=== PATIENT | male | born 1980 | race Caucasian/White ===

== ENCOUNTER 2016-09-21 05:29 | Emergency (ER) | payer BC, OTHER ==
--- NOTE | 2016-09-21 09:07 | ER Document Report ---
ED General - General Time seen by provider: 09:02 Mode of Arrival: Ambulatory Information source: Patient TRAVEL OUTSIDE OF THE [place] IN LAST 30 DAYS: No - HPI Onset: Other - see HPI note - General Chief Complaint: Skin Problem Stated Complaint: ABSCESS/NECK PAIN Notes: Patient is a 36-year-old male presenting to the emergency department for some mild swelling and pain in his neck. Patient states that he has some swelling in the left lymph nodes in his neck and his jaw is tender from his ear down. Patient also has some pain when he is swallowing or chewing food. Patient states that he had an episode similar to this about 8 months ago. Patient received a medication which relieved his symptoms; patient does not know the name of the medication or the dosage. Patient also does not recall the name of his doctor. Patient also complains of an area on his chest just below his breast on the left side that he wants to be examined. Patient states both of these areas occurred this morning. Patient denies any pertinent medical history and any surgeries. (MELE LYNCH) - Related Data Allergies/Adverse Reactions: No Known Allergies Allergy (Verified 01/14/15 14:01) Past Medical History - General Information source: Patient - Social History Smoking Status: Never Smoker Cigarette use (# per day): No Chew tobacco use (# tins/day): No Frequency of alcohol use: Rare Drug Abuse: None Family History: None Patient has suicidal ideation: No Patient has homicidal ideation: No - Medical History Medical History: Negative Surgical Hx: Negative - Immunizations Hx Diphtheria, Pertussis, Tetanus Vaccination: Yes Hx Pneumococcal Vaccination: 04/23/11 Review of Systems - Review of Systems Constitutional: No symptoms reported EENT: No symptoms reported Cardiovascular: No symptoms reported Respiratory: No symptoms reported Gastrointestinal: No symptoms reported Genitourinary: No symptoms reported Male Genitourinary: No symptoms reported Musculoskeletal: No symptoms reported Skin: See HPI Hematologic/Lymphatic: No symptoms reported Neurological/Psychological: No symptoms reported -: Yes All other systems reviewed and negative Physical Exam - Vital signs Interpretation: Normal - General General appearance: Appears well, Alert In distress: Mild - HEENT Head: Normocephalic, Atraumatic Eyes: Normal Pupils: PERRL Ears: Normal External canal: Normal Tympanic membrane: Normal Mouth/Lips: Normal Mucous membranes: Moist Pharynx: Normal, Other - molars are non-tender when tapped, no sign of abscess or dental fractures Neck: Other - Swelling and tenderness to the left submandibular gland, no swelling or tenderness to the parotid gland - Respiratory Respiratory status: No respiratory distress Chest status: Nontender, Other - on the left anterior chest there is a 2 mm subcutaneous nodule Breath sounds: Normal Chest palpation: Normal - Cardiovascular Rhythm: Regular Heart sounds: Normal auscultation Murmur: No - Abdominal Inspection: Normal Distension: No distension Bowel sounds: Normal Tenderness: Nontender Organomegaly: No organomegaly - Back Back: Normal, Nontender - Extremities General upper extremity: Normal inspection, Normal ROM, Normal strength General lower extremity: Normal inspection, Normal ROM, Normal strength - Neurological Neuro grossly intact: Yes Cognition: Normal Orientation: AAOx4 [place] Coma Scale Eye Opening: Spontaneous Myron Coma Scale Verbal: Oriented Myron Coma Scale Motor: Obeys Commands Myron Coma Scale Total: 15 Speech: Normal - Psychological Associated symptoms: Normal affect, Normal mood - Skin Skin Temperature: Warm Skin Moisture: Dry - Vital signs Vitals: Temp Pulse Resp BP Pulse Ox 97.8 F 83 16 140/82 H 97 09/21/16 05:37 09/21/16 05:37 09/21/16 05:37 09/21/16 05:37 09/21/16 05:37 Discharge - Discharge Clinical Impression: Submandibular gland inflammation, Subcutaneous nodule of chest wall Condition: Stable Disposition: HOME, SELF-CARE Additional Instructions: Lymphadenopathy: You have enlargement of lymph glands, called lymphadenopathy. Lymph glands filter tissue fluids. They help to fight infection. Most of the time, enlarged lymph glands are not serious. Lymph glands may react to a viral or bacterial infection by becoming swollen and painful. When the infection goes away, the glands shrink. Sometimes a lymph gland will remain enlarged for a long time after an infection. Occasionally, a lymph gland may be overwhelmed by infection and form an abscess. If an enlarged lymph gland has signs that are suspicious for tumor, the doctor will recommend a biopsy. A suspicious gland usually is NOT painful, grows very slowly, and is rock-hard to touch. See the doctor or return if there is increasing swelling and redness, high fever, difficulty breathing, or any other change for the worse. TAKE THE ANTIBIOTIC PRESCRIBED. USE WARM SOAKS TO THE ENLARGED LYMPH NODE. FOLLOW UP WITH [facility] TO EVALUATE THE LEFT CHEST NODULE. FOLLOW UP WITH A LOCAL MEDICAL DOCTOR IF THE LYMPH NODE DOES NOT IMPROVE. RETURN TO THE EMERGENCY ROOM IF ANY NEW OR WORSENING SYMPTOMS. Prescriptions: Doxycycline Hyclate 100 mg PO BID #20 tablet.dr Forms: Return to Work Referrals: [facility] [Provider Group] - Follow up as needed Scribe Attestation: 09/21/16 09:12 I personally performed the services described in the documentation, reviewed and edited the documentation which was dictated to the scribe in my presence, and it accurately records my words and actions. (GALINDO FIERRO) Scribe Documentation - Scribe Written by Scribe:: Mele Lynch 09/21/16 10:10 acting as scribe for :: Mariann
[2016-09-21 09:48] VITALS: BP 138/78
== END 2016-09-21 09:34 | disposition home or self-care (01) ==
LOC: ER 05:29
DX: I88.8 Other nonspecific lymphadenitis (principal); R22.2 Localized swelling, mass and lump, trunk
CPT/HCPCS: 99283

== ENCOUNTER 2016-10-21 02:22 | Emergency (ER) | payer BC, OTHER ==
--- NOTE | 2016-10-21 07:18 | ER Document Report ---
HPI - HPI Patient complains to provider of: hives Onset: Last week Onset/Duration: Waxing and waning Quality of pain: No pain Pain Level: Denies Context: 36 yo male with itchy hives that wax and wane. Thinks it is the dryer sheets from his mom's house. NO fever. No new meds. Associated Symptoms: None Exacerbated by: Other - ? dryer sheets Relieved by: Denies Similar symptoms previously: No Recently seen / treated by doctor: No - ROS ROS below otherwise negative: Yes Systems Reviewed and Negative: Yes All other systems reviewed and negative - REPRODUCTIVE Reproductive: DENIES: : - DERM Skin Color: Normal Past Medical History - General Information source: Patient - Social History Smoking Status: Never Smoker Chew tobacco use (# tins/day): No Frequency of alcohol use: Occasional Drug Abuse: None Family History: None Patient has suicidal ideation: No Patient has homicidal ideation: No - Medical History Medical History: Negative Renal/ Medical History: Denies: Hx Peritoneal Dialysis Surgical Hx: Negative - Immunizations Hx Diphtheria, Pertussis, Tetanus Vaccination: Yes Hx Pneumococcal Vaccination: 04/23/11 Vertical Provider Document - CONSTITUTIONAL Agree With Documented VS: Yes Exam Limitations: No Limitations General Appearance: No Apparent Distress - INFECTION CONTROL TRAVEL OUTSIDE OF THE [place] IN LAST 30 DAYS: No - NECK Neck: Supple - RESPIRATORY Respiratory: Breath Sounds Normal, No Respiratory Distress O2 Sat by Pulse Oximetry: 99 - CARDIOVASCULAR Cardiovascular: Regular Rate, Regular Rhythm - MUSCULOSKELETAL/EXTREMETIES Musculoskeletal/Extremeties: MAEW, FROM - NEURO Level of Consciousness: Awake, Alert - DERM Integumentary: Rash - scattered trucal and arm urticaria Course - Vital Signs Vital signs: Temp Pulse Resp BP Pulse Ox 97.9 F 61 16 125/81 99 10/21/16 04:19 10/21/16 04:19 10/21/16 04:19 10/21/16 04:19 10/21/16 04:19 Discharge - Discharge Clinical Impression: urticaria Condition: Good Disposition: HOME, SELF-CARE Instructions: Use of Diphenhydramine, Acid-Suppressing Medication ([facility]), Steroid Medication, Acute Urticaria ([facility]) Additional Instructions: continue the benadryl [id number] Pepcid daily Stop using the dryer sheets causing the rash Return to the emergency room if worse Please complete the patient satisfaction survey if you get one, and return it.. If you do not receive a survey, then you can go to the [facility] website, [email or web address] and place your comments about your very good care. Thank you very much. It was a pleasure being your medical provider today. Prescriptions: Prednisone [Deltasone 10 mg Tablet] 10 mg PO ASDIR PRN #21 tablet PRN Reason: Forms: Return to Work Referrals: ASHLIE ALMONTE, DO [ACTIVE STAFF] - Follow up as needed
[2016-10-21 07:42] VITALS: BP 134/90
== END 2016-10-21 07:42 | disposition home or self-care (01) ==
LOC: ER 02:22
DX: L50.9 Urticaria, unspecified (principal)
CPT/HCPCS: 99282

== ENCOUNTER 2016-10-28 21:21 | Emergency (ER) | payer OTHER ==
--- NOTE | 2016-10-28 23:45 | ER Document Report ---
ED General - General Chief Complaint: Allergic Reaction Stated Complaint: POSSIBLE ALLERGIC REACTION/CHEST PAIN Notes: Patient is a 6 show male presents with complaint of hives like reaction. Patient says that he was diagnosed with hives. Then gone away. He took prednisone as prescribed for him. Taking prednisone he broke out worsening hives. He lost medication for several days and came back home today. He found medication. He took it again because the bottle said to finish up the prescription. After taking medication he really broke out in hives again. No difficulty breathing. No difficulty swallowing. No fevers. He also mentions that he had some lymph node swelling several months ago. He says when he got the hives like he might swelled up little bit more. Currently does not feels much swelling. He said no redness or swelling over the areas. He said no infections or fevers associated with it. Patient's third complaint is that he feels all not below his left breast. Says it has been there for a while. It has not enlarged in size. It's not been red or inflamed. Is not painful. TRAVEL OUTSIDE OF THE [place] IN LAST 30 DAYS: No - Related Data Allergies/Adverse Reactions: No Known Allergies Allergy (Verified 01/14/15 14:01) Past Medical History - Social History Smoking Status: Unknown if Ever Smoked Frequency of alcohol use: None Drug Abuse: None Family History: None Patient has suicidal ideation: No Patient has homicidal ideation: No Renal/ Medical History: Denies: Hx Peritoneal Dialysis - Immunizations Hx Diphtheria, Pertussis, Tetanus Vaccination: Yes Hx Pneumococcal Vaccination: 04/23/11 Review of Systems - Review of Systems Notes: My Normal Review Basic REVIEW OF SYSTEMS: CONSTITUTIONAL : Denies fever, chills, or sweats. Denies recent illness. EENT: Denies eye, ear, throat, or mouth pain or symptoms. Denies nasal or sinus congestion. CARDIOVASCULAR: Denies chest pain. RESPIRATORY: Denies cough, cold, or chest congestion. Denies shortness of breath, difficulty breathing, or wheezing. GASTROINTESTINAL: Denies abdominal pain. Denies nausea, vomiting, or diarrhea. Denies constipation. Last BM: MUSCULOSKELETAL: Denies neck or back pain or joint pain or swelling. SKIN: Hives NEUROLOGICAL: Denies altered mental status or loss of consciousness. Denies headache. Denies weakness or paralysis or loss of use of either side. Denies problems with gait or speech. Denies sensory or motor loss. ALL OTHER SYSTEMS REVIEWED AND NEGATIVE. Physical Exam - Vital signs Vitals: Temp Pulse Resp BP Pulse Ox 98.4 F 76 18 133/84 H 100 10/28/16 21:27 10/28/16 21:27 10/28/16 21:27 10/28/16 21:27 10/28/16 21:27 - Notes Notes: General Appearance: Well nourished, alert, cooperative, no acute distress, no obvious discomfort. Well-appearing. Vitals: reviewed, See vital signs table. Head: no swelling or tenderness to the head Eyes: PERRL, EOMI, Conjuctiva clear Mouth: No decreasd moisture Throat: No tonsillar inflammation, No airway obstruction, No lymphadenopathy Neck: Supple, no neck tenderness, No thyromegaly Lungs: No wheezing, No rales, No rhonci, No accessory muscle use, good air exchange bilaterally. Heart: Normal rate, Regular rythm, No murmur, no rub Chest wall: Small pinpoint are not palpated in the subcutaneous fat below the left pectoral muscle. Consistent with probable lipoma. Extremities: strength 5/5 in all extremities, good pulses in all extremities, no swelling or tenderness in the extremities, no edema. Skin: Diffuse easily blanchable hives. Neuro: speech clear, oriented x 3, normal affect, responds appropriately to questions. Course - Re-evaluation Re-evalutation: 10/29/16 01:11 I did give the patient saw Decadron. He does not seem to have any worsening allergic reaction to this since we do not improved with it. I encourage and stopped taking prednisone as this seems to trigger hives for him. It must be a filler or a gritty in the prednisone that he is allergic to. Patient has no airway symptoms. He looks well. I encouraged him to return to the ER if he has worsening of his symptoms or feels unwell. Patient agrees with plan and will be discharged home. Dictation of this chart was performed using voice recognition software; therefore, there may be some unintended grammatical errors. - Vital Signs Vital signs: Temp Pulse Resp BP Pulse Ox 98.4 F 76 18 133/84 H 100 10/28/16 21:27 10/28/16 21:27 10/28/16 21:27 10/28/16 21:27 10/28/16 21:27 Discharge - Discharge Clinical Impression: Allergic reaction Qualifiers: Encounter type: initial encounter Qualified Code(s): T78.40XA - Allergy, unspecified, initial encounter Condition: Good Disposition: HOME, SELF-CARE Additional Instructions: Please return to the ER immediately if you develop worsening hives, fevers, difficulty breathing, or feel unwell. Please stop taking the prednisone. I have prescribed a Adrenaclick pen which is the same thing as an epipen. Only use this if you have severe reaction such as throat swelling, difficulty breathing, or difficulty swallowing. Return to the ER immediately if you have to use the Adrenaclick pen. Please keep a close eye on the small knot below your left breast. PLease follow up with a doctor to monitor it. If it enlarges in size you may need a biopsy. Prescriptions: Epinephrine [Adrenaclick] 0.3 mg IM ONCE PRN #1 kit PRN Reason: severe allergic reaction Forms: Return to Work
[2016-10-28] MEDS ORDERED: DEXAMETHASONE SOD PHOS INJ 10 MG/1 ML VIAL IM ONE (23:52)
[2016-10-28] MEDS ORDERED: FAMOTIDINE 20 MG TABLET PO ONE (23:52)
[2016-10-29 01:21] VITALS: BP 135/89
== END 2016-10-29 01:19 | disposition home or self-care (01) ==
LOC: ER 21:21
DX: T78.40XA Allergy, unspecified, initial encounter (principal); X58.XXXA Exposure to other specified factors, initial encounter
CPT/HCPCS: 99283; 96372; J1100

== ENCOUNTER 2017-05-13 09:19 | Emergency (ER) | payer BC ==
--- NOTE | 2017-05-13 09:33 | ER Document Report ---
HPI - HPI Patient complains to provider of: Lateral left knee pain Onset: This morning Onset/Duration: Sudden Pain Level: 3 Context: 36-year-old male woke up this morning with lateral left knee pain that extends to the proximal fibula area especially when he steps down on that leg. The pain is burning and sharp feels like a cramp and radiates upward to his left sacral iliac back. No history of sciatica. It worse a lot more during the x- ray and came back from radiology very sweaty pale moaning holding his breath and holding his soft tissue adjacent to the left proximal fibula. No history of radiculopathy. No injury. NO fever, No IV drug use, No IV drug use. Associated Symptoms: None Exacerbated by: Walking Relieved by: Other - Rubbing and applying pressure to the area in his left sacroiliac joint and the tendon adjacent to the proximal fibula decrease the pain. I also applied heat which helped the pain. Recently seen / treated by doctor: No - ROS ROS below otherwise negative: Yes Systems Reviewed and Negative: Yes All other systems reviewed and negative - REPRODUCTIVE Reproductive: DENIES: : - DERM Skin Color: Normal Past Medical History - General Information source: Patient - Social History Smoking Status: Current Every Day Smoker Frequency of alcohol use: None Drug Abuse: None Occupation: [employer] Family History: None Renal/ Medical History: Denies: Hx Peritoneal Dialysis Musculoskeltal Medical History: Reports Hx Musculoskeletal Trauma - left knee injury in past - Immunizations Hx Diphtheria, Pertussis, Tetanus Vaccination: Yes Hx Pneumococcal Vaccination: 04/23/11 Vertical Provider Document - CONSTITUTIONAL Agree With Documented VS: Yes Exam Limitations: No Limitations General Appearance: Severe Distress - INFECTION CONTROL TRAVEL OUTSIDE OF THE [place] IN LAST 30 DAYS: No - HEENT HEENT: Normocephalic - NECK Neck: Supple - RESPIRATORY O2 Sat by Pulse Oximetry: 98 - CARDIOVASCULAR Cardiovascular: Regular Rate, Regular Rhythm - GI/ABDOMEN Gastrointestinal: Abdomen Soft, Abdomen Non-Tender - MUSCULOSKELETAL/EXTREMETIES Musculoskeletal/Extremeties: Tender - tendon lateral to proximal left fibula, pt continues to rub the area - NEURO Level of Consciousness: Awake, Alert Motor/Sensory: No Motor Deficit, No Sensory Deficit Deep Tendon Reflexes: 2+ - toro ankle and patellar after he was calm and pain reduced Notes: negative straight leg raise, 5 + strength to gt toes and foot eversion - DERM Integumentary: Warm. negative: Rash Course - Re-evaluation Re-evalutation: 05/13/17 12:[address] keane, treat with steroids and muscle relaxers, no opiates. 05/13/17 12:28 Pain is much better after the Dilaudid. He is able to walk on his tiptoes, when he dorsiflexes foot it causes increased pain to the lateral left knee. nauseous now after ambulating, most likely from the opiate. zofran given. Has ride home - Vital Signs Vital signs: Temp Pulse Resp BP Pulse Ox 97.4 F 66 16 127/81 H 98 05/13/17 09:24 05/13/17 09:24 05/13/17 09:24 05/13/17 09:24 05/13/17 09:24 Discharge - Discharge Clinical Impression: left sacroillitis, radicular lateral left knee pain Condition: Good Disposition: HOME, SELF-CARE Instructions: Chiropractor, Low Back Pain ([facility]), Muscle Relaxers ([facility]), Muscle Strain ([facility]), Steroid Medication, Ultram ([facility]), Warm Packs ([facility]) Additional Instructions: warm compress massage stretching as instructed to er if worse Please complete the patient satisfaction survey if you get one, and return it.. If you do not receive a survey, then you can go to the [facility] website, [email or web address] and place your comments about your very good care. Thank you very much. It was a pleasure being your medical provider today. Prescriptions: Ibuprofen [Motrin 800 mg Tablet] 800 mg PO Q8HP PRN #30 tablet PRN Reason: Prednisone [Deltasone 10 mg Tablet] 10 mg PO ASDIR PRN #21 tablet PRN Reason: Tramadol HCl [Ultram 50 mg Tablet] 50 mg PO ASDIR PRN #15 tablet PRN Reason: Forms: Return to Work Referrals: MINERVA LOZOYA MD [ACTIVE STAFF] - Follow up as needed
[2017-05-13] MEDS ORDERED: ACETAMINOPHEN 325 MG TABLET PO ONE (09:57)
[2017-05-13] MEDS ORDERED: IBUPROFEN 800 MG TABLET PO ONE (09:57)
[2017-05-13] MEDS ORDERED: DIAZEPAM 5 MG TABLET PO ONE (10:07)
[2017-05-13] MEDS ORDERED: MORPHINE SULFATE 10 MG/ML INJ IM ONE (10:29)
--- NOTE | 2017-05-13 10:31 | RADIOLOGY REPORT (SQ) ---
EXAM DESCRIPTION: KNEE LEFT 4 VIEW COMPLETED DATE/TIME: 05/13/2017 10:06 am REASON FOR STUDY: chronic left knee pain COMPARISON: None. NUMBER OF VIEWS: Four views. TECHNIQUE: AP, lateral, and both oblique radiographic images acquired of the left knee. LIMITATIONS: None. FINDINGS: MINERALIZATION: Normal. BONES: No acute fracture or dislocation. No worrisome bone lesions. JOINT: No effusion. SOFT TISSUES: No soft tissue swelling. No radio-opaque foreign body. OTHER: No other significant finding. IMPRESSION: NEGATIVE STUDY OF THE LEFT KNEE. NO RADIOGRAPHIC EVIDENCE OF ACUTE INJURY. TECHNICAL DOCUMENTATION: JOB ID: [id number] [employer]- All Rights Reserved
[2017-05-13] MEDS ORDERED: HYDROMORPHONE HCL INJ/PF 2 MG/ML AMPULE IM ONE (11:25)
[2017-05-13] MEDS ORDERED: PREDNISONE 20 MG TABLET PO ONE (12:28)
[2017-05-13] MEDS ORDERED: ONDANSETRON 4 MG TAB.RAPDIS PO ONE (12:30)
[2017-05-13 12:52] VITALS: BP 121/76
== END 2017-05-13 12:49 | disposition home or self-care (01) ==
LOC: ER 09:19
DX: M46.1 Sacroiliitis, not elsewhere classified (principal); M25.561 Pain in right knee; F17.200 Nicotine dependence, unspecified, uncomplicated
CPT/HCPCS: 99283; 96372; 73562; S0119; J2270; J1170; J7512

== ENCOUNTER 2017-07-13 00:40 | Emergency (ER) | payer BC ==
[2017-07-13] MEDS ORDERED: NORMAL SALINE 1000 ML 1,000 ML IV PRN (03:06)
[2017-07-13] MEDS ORDERED: NORMAL SALINE 1000 ML 1,000 ML IV ONE (03:06)
--- NOTE | 2017-07-13 03:07 | ER Document Report ---
ED General - General Chief Complaint: Near Syncope Stated Complaint: LIGHT HEADED Time Seen by Provider: 07/13/17 03:05 Notes: 36 years old male who gave plasma today, this is her fourth donation for the whole year, after this felt dizzy lightheaded and almost about to pass out therefore he presented to the ED. Denies any headache , focal weakness numbness tingling sensation. Denies any other constitutional symptoms TRAVEL OUTSIDE OF THE [place] IN LAST 30 DAYS: No - Related Data Allergies/Adverse Reactions: No Known Allergies Allergy (Verified 05/13/17 09:23) Past Medical History - Social History Smoking Status: Current Some Day Smoker Family History: None Renal/ Medical History: Denies: Hx Peritoneal Dialysis Musculoskeltal Medical History: Reports Hx Musculoskeletal Trauma - left knee injury in past - Immunizations Hx Diphtheria, Pertussis, Tetanus Vaccination: Yes Hx Pneumococcal Vaccination: 04/23/11 Review of Systems - Review of Systems Notes: REVIEW OF SYSTEMS: CONSTITUTIONAL : Denies fever, chills, or sweats. Denies recent illness. EENT: Denies eye, ear, throat, or mouth pain or symptoms. Denies nasal or sinus congestion or discharge. Denies throat, tongue, or mouth swelling or difficulty swallowing. CARDIOVASCULAR: Denies chest pain. Denies palpitations or racing or irregular heart beat. Denies ankle edema. RESPIRATORY: Denies cough, cold, or chest congestion. Denies shortness of breath, difficulty breathing, or wheezing. GASTROINTESTINAL: Denies abdominal pain or distention. Denies nausea, vomiting , or diarrhea. Denies blood in vomitus, stools, or per rectum. Denies black, tarry stools. Denies constipation. GENITOURINARY: Denies difficulty urinating, painful urination, burning, frequency, blood in urine, or discharge. MUSCULOSKELETAL: Denies back or neck pain or stiffness. Denies joint pain or swelling. SKIN: Denies rash, lesions or sores. HEMATOLOGIC : Denies easy bruising or bleeding. LYMPHATIC: Denies swollen, enlarged glands. NEUROLOGICAL: Denies confusion or altered mental status. Denies passing out or loss of consciousness. Denies dizziness or lightheadedness. Denies headache. Denies weakness or paralysis or loss of use of either side. Denies problems with gait or speech. Denies sensory loss, numbness, or tingling. Denies seizures. PSYCHIATRIC: Denies anxiety or stress. Denies depression, suicidal ideation, or homicidal ideation. ALL OTHER SYSTEMS REVIEWED AND NEGATIVE. Dictation was performed using [employer] voice recognition software PHYSICAL EXAMINATION: GENERAL: Well-appearing, well-nourished and in no acute distress. HEAD: Atraumatic, normocephalic. EYES: Pupils equal round and reactive to light, extraocular movements intact, sclera anicteric, conjunctiva are normal. ENT: Nares patent, oropharynx clear without exudates. Moist mucous membranes. NECK: Normal range of motion, supple without lymphadenopathy LUNGS: Breath sounds clear to auscultation bilaterally and equal. No wheezes rales or rhonchi. HEART: Regular rate and rhythm without murmurs ABDOMEN: Soft, nontender, nondistended abdomen. No guarding, no rebound. No masses appreciated. Musculoskeletal: Normal range of motion, no pitting or edema. No cyanosis. NEUROLOGICAL: Cranial nerves grossly intact. Normal speech, normal gait. Normal sensory, motor exams PSYCH: Normal mood, normal affect. SKIN: Warm, Dry, normal turgor, no rashes or lesions noted. Physical Exam - Vital signs Vitals: Temp Pulse Resp BP Pulse Ox 97.9 F 102 H 16 114/80 97 07/13/17 00:50 07/13/17 00:50 07/13/17 00:50 07/13/17 00:50 07/13/17 00:50 Course - Re-evaluation Re-evalutation: 07/13/17 05:52 IV hydration improve his symptoms. He has no febrile symptoms at all. Denies any fever chills or other constitutional symptoms. - Vital Signs Vital signs: Temp Pulse Resp BP Pulse Ox 97.6 F 74 18 110/60 97 07/13/17 04:50 07/13/17 04:50 07/13/17 04:50 07/13/17 04:50 07/13/17 04:50 - Laboratory Result Diagrams: 07/13/17 03:50 Laboratory results interpreted by me: 07/13/17 03:50 WBC 17.0 H Seg Neutrophils % 87.8 H Lymphocytes % 8.4 L Absolute Neutrophils 14.9 H Discharge - Discharge Clinical Impression: Dehydration Leukocytosis Qualifiers: Leukocytosis type: unspecified Qualified Code(s): D72.829 - Elevated white blood cell count, unspecified Disposition: HOME, SELF-CARE Instructions: Dehydration ([facility])
[2017-07-13 04:02] LABS: ABSOLUTE LYMPHOCYTES (AUTO) 1.4 10^3/uL (0.5-4.7); ABSOLUTE MONOCYTES (AUTO) 0.6 10^3/uL (0.1-1.4); ABSOLUTE NEUT (AUTO) 14.9 10^3/uL (1.7-8.2); BASOPHILS % (AUTO) 0.2 % (0-2); EOSINOPHILS % (AUTO) 0.1 % (0-6); HEMOGLOBIN 15.8 g/dL (13.5-17.0); HGB HCT DIFFERENCE 2.4; LYMPHOCYTES % (AUTO) 8.4 % (13-45); MEAN CORPUSCULAR HEMOGLOBIN 31.4 pg (27.0-33.4); MEAN CORPUSCULAR HGB CONC 35.2 g/dL (32.0-36.0); MEAN CORPUSCULAR VOLUME 89 fl (80-97); MONOCYTES % (AUTO) 3.5 % (3-13); RED BLOOD COUNT 5.04 10^6/uL (4.35-5.55); RED CELL DISTRIBUTION WIDTH 13.3 % (11.5-14.0); SEGMENTED NEUTROPHILS % (AUTO) 87.8 % (42-78)
[2017-07-13 04:50] VITALS: BP 110/60
== END 2017-07-13 06:05 | disposition home or self-care (01) ==
LOC: ER 00:40
DX: E86.0 Dehydration (principal); D72.829 Elevated white blood cell count, unspecified; R55 Syncope and collapse; F17.200 Nicotine dependence, unspecified, uncomplicated
CPT/HCPCS: 99284; 96360; 96361; 36415; 85025; J7030

== ENCOUNTER 2018-01-20 12:55 | Emergency (ER) | payer BC ==
[2018-01-20] MEDS ORDERED: ASPIRIN 81 MG TABLET, CHEWABLE PO ONE (13:23)
[2018-01-20 13:45] LABS: ABSOLUTE EOSINOPHILS # (AUTO) 0.2 10^3/uL (0.0-0.6); ABSOLUTE LYMPHOCYTES (AUTO) 2.4 10^3/uL (0.5-4.7); ABSOLUTE MONOCYTES (AUTO) 0.5 10^3/uL (0.1-1.4); ABSOLUTE NEUT (AUTO) 5.4 10^3/uL (1.7-8.2); BASOPHILS % (AUTO) 0.5 % (0-2); EOSINOPHILS % (AUTO) 2.3 % (0-6); HEMOGLOBIN 14.4 g/dL (13.5-17.0); LYMPHOCYTES % (AUTO) 27.7 % (13-45); MEAN CORPUSCULAR HEMOGLOBIN 30.1 pg (27.0-33.4); MEAN CORPUSCULAR HGB CONC 33.6 g/dL (32.0-36.0); MEAN CORPUSCULAR VOLUME 90 fl (80-97); MONOCYTES % (AUTO) 6.4 % (3-13); PLATELET COUNT 284 10^3/uL (150-450); RED BLOOD COUNT 4.79 10^6/uL (4.35-5.55); RED CELL DISTRIBUTION WIDTH 13.5 % (11.5-14.0); SEGMENTED NEUTROPHILS % (AUTO) 63.1 % (42-78); TOTAL CELLS COUNTED % (AUTO) 100 %; WHITE BLOOD COUNT 8.5 10^3/uL (4.0-10.5)
--- NOTE | 2018-01-20 13:51 | RADIOLOGY REPORT (SQ) ---
EXAM DESCRIPTION: CHEST SINGLE VIEW COMPLETED DATE/TIME: 01/20/2018 1:40 pm REASON FOR STUDY: cp COMPARISON: 07/03/2012 EXAM PARAMETERS: NUMBER OF VIEWS: One view. TECHNIQUE: Single frontal radiographic view of the chest acquired. RADIATION DOSE: NA LIMITATIONS: None. FINDINGS: LUNGS AND PLEURA: No opacities, masses or pneumothorax. No pleural effusion. MEDIASTINUM AND HILAR STRUCTURES: No masses. Contour normal. HEART AND VASCULAR STRUCTURES: Heart normal in size. Normal vasculature. BONES: No acute findings. HARDWARE: None in the chest. OTHER: No other significant finding. IMPRESSION: NO ACUTE RADIOGRAPHIC FINDING IN THE CHEST. TECHNICAL DOCUMENTATION: JOB ID: [id number] [employer]- All Rights Reserved Reading location - IP/workstation name: [email or web address]
[2018-01-20 14:11] LABS: ALANINE AMINOTRANSFERASE 43 U/L (21-72); ALBUMIN 4.5 g/dL (3.5-5.0); ALKALINE PHOSPHATASE 72 U/L (38-126); ANION GAP 15 (5-19); ASPARTATE AMINO TRANSFERASE 32 U/L (17-59); BILIRUBIN,DIRECT 0.3 mg/dL (0.0-0.4); BILIRUBIN,TOTAL 0.7 mg/dL (0.2-1.3); BLOOD UREA NITROGEN 13 mg/dL (7-20); CALCIUM 9.5 mg/dL (8.4-10.2); CARBON DIOXIDE 26 mmol/L (22-30); CHLORIDE 106 mmol/L (98-107); CREATINE KINASE 215 U/L (55-170); GLUCOSE 89 mg/dL (75-110); LIPASE 67.3 U/L (23-300); POTASSIUM 3.8 mmol/L (3.6-5.0); SODIUM 147.4 mmol/L (137-145); TOTAL PROTEIN 7.5 g/dL (6.3-8.2)
[2018-01-20 14:21] LABS: CREATINE KINASE MB 1.52 ng/mL (<4.55)
[2018-01-20 14:26] LABS: TROPONIN I < 0.012 ng/mL
--- NOTE | 2018-01-20 15:17 | ER Document Report ---
ED Cardiac - General Chief Complaint: Chest Pain Stated Complaint: CHEST PAIN Time Seen by Provider: 01/20/18 13:39 Mode of Arrival: Ambulatory Information source: Patient Notes: Patient presents complaining of midsternal chest pain off and on for the past 10 days. Patient states that it started up again today which prompted his visit here. Patient states that whenever he has smoked marijuana it does seem to precipitate his chest pain symptoms. Patient denies any recent travel, bedrest remobilization. Patient denies any significant family history of heart disease at an early age. Patient does state he has had some palpitations as well. Patient does report history of anxiety although does not take any medications to treat this. Patient states that his pain started about an hour prior to arrival today. Patient presently denies any chest pain symptoms at this time. TRAVEL OUTSIDE OF THE [place] IN LAST 30 DAYS: No - HPI Patient complains to provider of: Chest pain, Palpitations Use of: Other - Marijuana Quality of pain: Pressure, Tightness Pain level currently: Denies Cardiac risk factors: None Positive cardiac history: No Associated symptoms: Palpitations. denies: Dizziness, Fever/chills, Headache, Heartburn, Lightheaded, Nausea/vomiting, Shortness of breath Exacerbated by: Other - Marijuana use Relieved by: Nothing Similar symptoms previously: No Recently seen / treated by doctor: No - Related Data Allergies/Adverse Reactions: No Known Allergies Allergy (Verified 05/13/17 09:23) Past Medical History - General Information source: Patient - Social History Smoking Status: Never Smoker Chew tobacco use (# tins/day): No Frequency of alcohol use: None Drug Abuse: None Occupation: Retail Lives with: Family Family History: None Patient has suicidal ideation: No Patient has homicidal ideation: No Renal/ Medical History: Denies: Hx Peritoneal Dialysis Musculoskeltal Medical History: Reports Hx Musculoskeletal Trauma - left knee injury in past Psychiatric Medical History: Reports: Hx Anxiety Surgical Hx: Negative - Immunizations Hx Diphtheria, Pertussis, Tetanus Vaccination: Yes Hx Pneumococcal Vaccination: 04/23/11 Review of Systems - Review of Systems Constitutional: No symptoms reported. denies: Fever, Recent illness EENT: No symptoms reported Cardiovascular: Chest pain, Palpitations. denies: Dyspnea Respiratory: No symptoms reported. denies: Cough, Short of breath Gastrointestinal: No symptoms reported. denies: Abdominal pain, Nausea, Vomiting Genitourinary: No symptoms reported Male Genitourinary: No symptoms reported Musculoskeletal: No symptoms reported. denies: Back pain Skin: No symptoms reported Hematologic/Lymphatic: No symptoms reported Neurological/Psychological: No symptoms reported Physical Exam - Vital signs Vitals: Temp Pulse Resp BP Pulse Ox 98.7 F 64 20 128/83 H 98 01/20/18 13:10 01/20/18 13:10 01/20/18 13:10 01/20/18 13:10 01/20/18 13:10 - General General appearance: Appears well, Alert In distress: None - HEENT Head: Normocephalic, Atraumatic Eyes: Normal Conjunctiva: Normal Nasal: Normal Mouth/Lips: Normal Mucous membranes: Normal Neck: Normal, Supple. No: Lymphadenopathy - Respiratory Respiratory status: No respiratory distress Chest status: Nontender Breath sounds: Normal. No: Rales, Rhonchi, Stridor, Wheezing Chest palpation: Normal - Cardiovascular Rhythm: Regular Heart sounds: S1 appreciated, S2 appreciated Murmur: No - Abdominal Inspection: Normal Distension: No distension Bowel sounds: Normal Tenderness: Nontender - Back Back: Normal, Nontender. No: CVA tenderness - Extremities General upper extremity: Normal inspection, Normal strength General lower extremity: Normal inspection, Normal strength - Neurological Neuro grossly intact: Yes Cognition: Normal Idalou Coma Scale Eye Opening: Spontaneous Myron Coma Scale Verbal: Oriented Myron Coma Scale Motor: Obeys Commands Idalou Coma Scale Total: 15 - Psychological Associated symptoms: Normal affect, Normal mood - Skin Skin Temperature: Warm Skin Moisture: Dry Skin Color: Normal Course - Re-evaluation Re-evalutation: 01/20/18 15:16 Patient denies any chest pain symptoms at this time. Vital signs stable. Will run second troponin test as the patient came in the right after his chest pain had started back up today around noon. 01/20/18 17:50 Patient's vital signs remained stable. Patient without any elevation in troponin testing. EKG reviewed without any signs of ischemia or infarct. Patient resting comfortably and denies pain at this time. Patient with a heart score of 1 for risk factors, PERC negative. The patient has atypical chest pain as the patient's chest pain is not suggestive of pulmonary embolus, cardiac ischemia, aortic dissection, or other serious etiology. Given the extremely low risk of these diagnoses for the test in evaluation for these possibilities does not appear to be indicated at this time. Patient has been instructed to return if the symptoms worsen or change in any way. - Vital Signs Vital signs: Temp Pulse Resp BP Pulse Ox 98.7 F 64 12 116/87 H 99 01/20/18 13:10 01/20/18 13:10 01/20/18 17:54 01/20/18 17:54 01/20/18 17:54 - Laboratory Result Diagrams: 01/20/18 13:28 01/20/18 13:28 Laboratory results interpreted by me: 01/20/18 13:28 Sodium 147.4 H Creatine Kinase 215 H - Diagnostic Test Radiology reviewed: Reports reviewed Discharge - Discharge Clinical Impression: Chest pain Qualifiers: Chest pain type: unspecified Qualified Code(s): R07.9 - Chest pain, unspecified Condition: Stable Disposition: HOME, SELF-CARE Instructions: Chest Pain of Unclear Cause ([facility]) Additional Instructions: Return immediately for any new or worsening symptoms Followup with your primary care provider, call tomorrow to make a followup appointment Avoid use of marijuana as this seems to trigger you chest pain symptoms Follow-up with a wireless team member for recheck, call Monday for an appointment Forms: Return to Work Referrals: KENDRA SANTOS PA-C [Primary Care Provider] - Follow up as needed MARAL FORDE MD [ACTIVE STAFF] - 01/22/18
[2018-01-20 17:59] VITALS: BP 116/87
--- NOTE | 2018-01-20 23:01 | EKG REPORT ---
SEVERITY:- NORMAL ECG - SINUS RHYTHM : Confirmed by: Marlen Abraham MD 20-Jan-2018 23:00:19
== END 2018-01-20 17:59 | disposition home or self-care (01) ==
LOC: ER 12:55
DX: R07.89 Other chest pain (principal); R00.2 Palpitations
CPT/HCPCS: 36415; 71045; 80053; 82550; 82553; 83690; 84443; 84484; 85025; 93005; 93010; 99285